=== PATIENT | female | born 1940 | race Caucasian/White ===

== ENCOUNTER → 2018-05-19 | Outpatient (CLI) | payer MEDICARE, OTHER ==
--- NOTE | 2018-05-19 09:10 | MR ---
EXAMINATION TYPE: MR brain wo con DATE OF EXAM: 05/19/2018 8:58 AM. COMPARISON: NONE. HISTORY: Memory loss and dementia Technique: Multiplanar, multiecho imaging of the brain was obtained without intravenous contrast. FINDINGS: A fast brain protocol was utilized. This decreases resolution. Midline structures are unremarkable. There is a normal craniocervical junction. Echoplanar diffusion imaging is normal. There is an air-fluid level in the left maxillary sinus indicative of acute sinusitis. There are normal vascular flow voids. The orbits are normal. There is no evidence of a CP angle mass lesion. There is both punctate and confluent periventricular white matter change, likely on the basis of smal l vessel disease and chronic ischemic change. There is no mass effect, midline shift or intracranial blood. There is a remote hyperintensity signal adjacent to the posterior right parietal lobe on the FLAIR da taset and less apparent on the T2 data set. Its difficult to tell of this is artifactual or whether t his represents some subacute blood in a 4 mm subdural hematoma. This cannot be appreciated on the sag ittal T1-weighted images. IMPRESSION: 1. I CANNOT EXCLUDE A TINY SUBDURAL HEMATOMA IN THE POSTERIOR RIGHT PARIETAL REGIONS. A CT SCAN OF TH E BRAIN WOULD BE SUGGESTED FOR FURTHER ASSESSMENT. 2. 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 OTHER CAUSES OF DEMYELINATION ARE NOT EXCLUDED.
== END | disposition home or self-care (01) ==
LOC: RADMRIMAIN 07:51
PROVIDERS: ATTEND Nurse Practitioner Acute Care
DX: R90.82 White matter disease, unspecified (principal)
CPT/HCPCS: 70551